=== PATIENT | female | born 1930 | race American Indian/Alaskan Native ===

== ENCOUNTER 2017-03-18 13:10 | Inpatient (IN) | payer MEDICARE ==
--- NOTE | 2017-03-18 14:11 | Emergency Department Report ---
HPI - General Chief Complaint: Weakness Time Seen by Provider: 03/18/17 13:56 - HPI HPI: Room 2 The patient is an 86-year-old female presenting with a chief complaint of nausea and diarrhea and weakness. Family states the patient is suffering from nausea and diarrhea since 03/14/2017. Yesterday the patient's stool turned black. The Patient admits to nausea but denies vomiting. Patient admits to occasional cough but denies chest pain. When asked how she is feeling currently patient replies "real weak." Location: [See above] Duration: [See above] Quality: Weakness Severity: Moderate Modifying factors: [see above] Context: [see above] Mode of transportation: [not driving] ED Past Medical Hx - Past Medical History Hx Hypertension: Yes Hx Arthritis: Yes - Surgical History Past Surgical History?: Yes Hx Cholecystectomy: Yes Additional Surgical History: knee OR 2012 - Family History Family history: no significant - Social History Smoking Status: Never Smoker Substance Use Type: None - Medications Home Medications: Home Medications Medication Instructions Recorded Confirmed Last Taken Type Albuterol Sulfate [Ventolin Hfa] 2 puff IH BID PRN 03/18/17 03/18/17 03/17/17 History Atenolol/Chlorthalidone [Tenoretic 1 tab PO QDAY 03/18/17 03/18/17 03/17/17 History 50-25] Meloxicam [Mobic] 7.5 mg PO QDAY 03/18/17 03/18/17 Unknown History Promethazine [Phenergan TAB] 25 mg PO Q6HR PRN 03/18/17 03/18/17 03/17/17 History ED Review of Systems ROS: Stated complaint: WEAKNESS/GENERAL MALAISE Other details as noted in HPI Constitutional: weakness Eyes: denies: eye pain Respiratory: cough Cardiovascular: denies: chest pain Gastrointestinal: nausea, melena. denies: vomiting Genitourinary: denies: dysuria Musculoskeletal: myalgia Physical Exam - Physical Exam Vital Signs: Vital Signs 03/18/17 13:58 Temperature 100.4 F H Pulse Rate 80 Respiratory 16 Rate Blood Pressure 147/70 O2 Sat by Pulse 93 Oximetry Physical Exam: GENERAL: The patient is well-developed well-nourished female lying on stretcher not appearing to be in acute distress. [] HEENT: Normocephalic. Atraumatic. Extraocular motions are intact. Patient has moist mucous membranes. NECK: Supple. Trachea midline CHEST/LUNGS: Clear to auscultation. There is no respiratory distress noted. HEART/CARDIOVASCULAR: Regular. There is no tachycardia. There is no gallop rub or murmur. ABDOMEN: Abdomen is soft, nontender. Patient has normal bowel sounds. There is no abdominal distention. SKIN: There is no rash. There is no edema. There is no diaphoresis. NEURO: The patient is awake, alert, and oriented. The patient is cooperative. The patient has normal speech MUSCULOSKELETAL: There is no evidence of acute injury. RECTAL: Guaiac positive light yellow stool ED Course Vital Signs 03/18/17 13:58 Temperature 100.4 F H Pulse Rate 80 Respiratory 16 Rate Blood Pressure 147/70 O2 Sat by Pulse 93 Oximetry ED Medical Decision Making - Lab Data Result diagrams: 03/18/17 14:26 03/18/17 14:26 - EKG Data -: EKG Interpreted by Me EKG shows normal: sinus rhythm Rate: normal (79 bpm) - EKG Data When compared to previous EKG there are: previous EKG unavailable Interpretation: other (no ischemic changes seen) - Differential Diagnosis GI bleed, symptomatic anemia, UTI, hypothyroidism Critical care attestation.: If time is entered above; I have spent that time in minutes in the direct care of this critically ill patient, excluding procedure time. ED Disposition Clinical Impression: GI bleed, Fever Disposition: 09 OP ADMIT IP TO THIS HOSP Is pt being admited?: Yes Does the pt Need Aspirin: No Condition: Fair Referrals: EMILY BEE MD [Primary Care Provider] - 3-5 Days Time of Disposition: 16:38 (hospitalist paged (Dr Rojo))
[2017-03-18 14:55] LABS: Basophils % (Auto) 0.7 % (0.0-1.8); Eosinophils % (Auto) 0.1 % (0.0-4.3); Hematocrit 37.2 % (30.3-42.9); Hemoglobin 11.8 gm/dl (10.1-14.3); Lymphocytes # (Auto) 1.3 K/mm3 (1.2-5.4); Lymphocytes % (Auto) 30.9 % (13.4-35.0); Mean Corpuscular HGB Conc 32 % (30-34); Mean Corpuscular Volume 78 fl (79-97); Monocytes # (Auto) 0.3 K/mm3 (0.0-0.8); Monocytes % (Auto) 6.5 % (0.0-7.3); Platelet Count 167 K/mm3 (140-440); Red Blood Count 4.76 M/mm3 (3.65-5.03); Red Cell Distribution Width 15.9 % (13.2-15.2)
[2017-03-18 14:57] LABS: Mean Corpuscular Hemoglobin 25 pg (28-32)
[2017-03-18 15:02] LABS: INR 0.96 (0.87-1.13)
[2017-03-18 15:03] LABS: Partial Thromboplastin Time 32.6 Sec. (24.2-36.6)
[2017-03-18 15:14] LABS: Free T4 (Free Thyroxine) 1.24 ng/dL (0.76-1.46)
[2017-03-18 16:18] LABS: Creatine Kinase MB 3.7 ng/mL (0.0-4.0)
[2017-03-18 16:19] LABS: Alanine Aminotransferase 22 units/L (7-56); Albumin 3.5 g/dL (3.9-5); BUN/Creatinine Ratio 22; Blood Urea Nitrogen 35 mg/dL (7-17); Calcium 8.7 mg/dL (8.4-10.2); Hemolysis Index 2
[2017-03-18] MEDS ORDERED: NACL 0.9% 500 ML 500 ML IV ONE (16:40)
[2017-03-18 18:49] LABS: Bacteria,Urine 4+ /HPF (Negative); Bilirubin,Urine NEG (Negative); Blood,Urine MOD (Negative); Color,Urine Yellow (Yellow); Hyaline Casts,Urine 3 /LPF; Mucus,Urine FEW /HPF; Nitrite,Urine NEG (Negative); Urobilinogen,Urine < 2.0 mg/dL (<2.0)
--- NOTE | 2017-03-18 19:57 | Event Note ---
Date: 03/18/17 See dictated H/p in reports
[2017-03-18] MEDS ORDERED: PHENERGAN PO PRN (19:59)
[2017-03-18] MEDS ORDERED: PROAIR IH PRN (19:59)
[2017-03-18] MEDS ORDERED: NON-FORMULARY (Atenolol/Chlorthalidone [Tenoretic 50-25] 1 TAB) PO SCH (20:00)
[2017-03-18] MEDS ORDERED: ZOFRAN IV PRN (20:02)
[2017-03-18] MEDS ORDERED: MILK OF MAGNESIA PO PRN (20:02)
[2017-03-18] MEDS ORDERED: MORPHINE IV PRN ×2 (20:02)
[2017-03-18] MEDS ORDERED: DULCOLAX PR PRN (20:02)
[2017-03-18] MEDS ORDERED: AMBIEN PO PRN (20:02)
[2017-03-18] MEDS ORDERED: REGLAN IV PRN (20:02)
[2017-03-18] MEDS ORDERED: PROVENTIL IH PRN (20:24)
[2017-03-18 20:37] LABS: Hematocrit 37.5 % (30.3-42.9); Hemoglobin 12.2 gm/dl (10.1-14.3)
[2017-03-18] MEDS: cefTRIAXone 1 GM in NACL 0.9% 20 ML IV SCH (22:01)
[2017-03-18] MEDS: PROTONIX IV SCH (22:01)
[2017-03-19 03:07] LABS: Albumin 2.9 g/dL (3.9-5); Basophils % (Auto) 0.7 % (0.0-1.8); Calcium 8.2 mg/dL (8.4-10.2); Eosinophils % (Auto) 0.1 % (0.0-4.3); Hematocrit 34.2 % (30.3-42.9); Hemoglobin 11.1 gm/dl (10.1-14.3); Lymphocytes # (Auto) 1.4 K/mm3 (1.2-5.4); Lymphocytes % (Auto) 41.6 % (13.4-35.0); Mean Corpuscular HGB Conc 33 % (30-34); Mean Corpuscular Volume 78 fl (79-97); Monocytes # (Auto) 0.3 K/mm3 (0.0-0.8); Monocytes % (Auto) 8.5 % (0.0-7.3); Platelet Count 148 K/mm3 (140-440); Red Blood Count 4.37 M/mm3 (3.65-5.03)
[2017-03-19 03:21] LABS: Mean Corpuscular Hemoglobin 25 pg (28-32)
[2017-03-19] MEDS: NACL 0.9% 1000 ML 1,000 ML IV SCH (05:30)
[2017-03-19] MEDS: TYLENOL PO PRN ×3 (05:58→23:40)
--- NOTE | 2017-03-19 07:57 | History and Physical Report ---
CHIEF COMPLAINT: 1. Weakness. 2. Black stools. 3. Nausea. HISTORY OF PRESENT ILLNESS: An 86-year-old female presents with nausea and dark stools. Also, feeling very weak. The patient had diarrhea since 03/14/2017, but the stools turned black around yesterday. Occasional cough. Feels very weak. PAST MEDICAL HISTORY: Significant for hypertension and arthritis. PAST SURGICAL HISTORY: Significant for cholecystectomy and knee surgery. FAMILY HISTORY: Hypertension. SOCIAL HISTORY: Does not smoke. No alcohol, no recreational drugs. CURRENT MEDICATIONS: Meloxicam, albuterol, and atenolol. REVIEW OF SYSTEMS: Significant for feeling weak and lightheaded and also dark stools. Otherwise, review of systems is essentially negative. PHYSICAL EXAMINATION: GENERAL: Elderly female, cooperative during examination. VITAL SIGNS: Blood pressure 147/70, temperature 100.4, pulse is 80, respiratory rate is 16. HEENT: Unremarkable. Pupils equal and reactive. NECK: Supple, no lymphadenopathy, no thyromegaly. LUNGS: Clear to auscultation and percussion. Good air entry. CARDIOVASCULAR: S1, S2 heard. No gallop, no murmur, no rub. Apical impulse in left fifth intercostal space and midclavicular line. ABDOMEN: Soft and benign. No hepatosplenomegaly. No guarding, no rigidity. Hernial orifices are normal. EXTREMITIES: Good pedal pulses. No pedal edema. CENTRAL NERVOUS SYSTEM: Alert and oriented x 4, nonfocal exam. RECTAL: Occult blood positive. IMAGING STUDIES: EKG normal sinus rhythm, nonspecific ST-T wave changes. LABORATORY DATA: Significant for hemoglobin of 11.8, hematocrit of 37.2, BUN and creatinine of 35 and 1.6. ASSESSMENT AND PLAN: 1. Lower gastrointestinal bleed. The patient to be evaluated for peptic ulcer disease and diverticulosis. GI consult requested. Hemoglobin and hematocrit q.8 hours ordered. IV Protonix ordered. 2. Acute kidney injury. BUN and creatinine 35 and 1.6. IV fluids ordered. 3. Hypertension. Continue atenolol 50/25 daily. 4. Arthritis. The patient on Meloxicam, which is stopped because of the potential cause for peptic ulcer disease. 5. Chronic obstructive pulmonary disease. Continue albuterol inhaler 2 puffs q.i.d. p.r.n. 6. Deep venous thromboses prophylaxis, SCDs only, no Lovenox. JOB# [id number] SHAWN/YAMILA
--- NOTE | 2017-03-19 08:01 | Progress Note ---
Assessment and Plan Assessment and plan: GI bleed - H&H stable - GI consulted UTI - On Rocephin Hypertension - Continue atenolol and amlodipine, discontinue chlorthalidone because of renal insufficiency Asthma - Albuterol when necessary Acute renal insufficiency - I discontinued chlorthalidone DVT prophylaxis Disposition Plan: will decide after GI evaluation. History Interval history: No nursing issues reported overnight, her stool is dark. Patient has nausea. Hospitalist Physical - Physical exam Narrative exam: Not in cardiopulmonary distress. The patient appeared well nourished and normally developed. Vital signs as documented. Head exam is unremarkable. No scleral icterus . Neck is without jugular venous distension, thyromegaly, or carotid bruits. Lungs are clear to auscultation. Cardiac exam reveals regular rate and Rhythm. First and second heart sounds normal. No murmurs, rubs or gallops. Abdominal exam reveals normal bowel sounds, no masses, no organomegaly and no aortic enlargement. Extremities are nonedematous and both femoral and pedal pulses are normal. CLAM DREDGER: Alert and oriented 3. No focal weakness. - Constitutional Vitals: Temp Pulse Resp BP Pulse Ox 100.1 F H 92 H 15 133/71 94 03/19/17 01:03 03/19/17 01:27 03/19/17 01:27 03/19/17 01:03 03/19/17 01:27 Results - Labs CBC & Chem 7: 03/19/17 07:58 03/19/17 02:24 Labs: Laboratory Last Values WBC 3.4 K/mm3 (4.5-11.0) L 03/19/17 02:24 RBC 4.37 M/mm3 (3.65-5.03) 03/19/17 02:24 Hgb 11.1 gm/dl (10.1-14.3) 03/19/17 02:24 Hct 34.2 % (30.3-42.9) 03/19/17 02:24 MCV 78 fl (79-97) L 03/19/17 02:24 MCH 25 pg (28-32) L 03/19/17 02:24 MCHC 33 % (30-34) 03/19/17 02:24 RDW 16.0 % (13.2-15.2) H 03/19/17 02:24 Plt Count 148 K/mm3 (140-440) 03/19/17 02:24 Lymph % (Auto) 41.6 % (13.4-35.0) H 03/19/17 02:24 [place] % (Auto) 8.5 % (0.0-7.3) H 03/19/17 02:24 Eos % (Auto) 0.1 % (0.0-4.3) 03/19/17 02:24 Baso % (Auto) 0.7 % (0.0-1.8) 03/19/17 02:24 Lymph # 1.4 K/mm3 (1.2-5.4) 03/19/17 02:24 [place] # 0.3 K/mm3 (0.0-0.8) 03/19/17 02:24 Eos # 0.0 K/mm3 (0.0-0.4) 03/19/17 02:24 Baso # 0.0 K/mm3 (0.0-0.1) 03/19/17 02:24 Seg Neutrophils % 49.1 % (40.0-70.0) 03/19/17 02:24 Seg Neutrophils # 1.7 K/mm3 (1.8-7.7) L 03/19/17 02:24 PT 13.3 Sec. (12.2-14.9) 03/18/17 14:26 INR 0.96 (0.87-1.13) 03/18/17 14:26 APTT 32.6 Sec. (24.2-36.6) 03/18/17 14:26 Sodium 136 mmol/L (137-145) L 03/19/17 02:24 Potassium 4.5 mmol/L (3.6-5.0) 03/19/17 02:24 Chloride 102.1 mmol/L (98-107) 03/19/17 02:24 Carbon Dioxide 20 mmol/L (22-30) L 03/19/17 02:24 Anion Gap 18 mmol/L 03/19/17 02:24 BUN 34 mg/dL (7-17) H 03/19/17 02:24 Creatinine 1.6 mg/dL (0.7-1.2) H 03/19/17 02:24 Estimated GFR 37 ml/min 03/19/17 02:24 BUN/Creatinine Ratio 21 % 03/19/17 02:24 Glucose 110 mg/dL (65-100) H 03/19/17 02:24 Hemoglobin A1c 5.8 % (4-6) 03/18/17 20:17 Calcium 8.2 mg/dL (8.4-10.2) L 03/19/17 02:24 Total Bilirubin 0.40 mg/dL (0.1-1.2) 03/19/17 02:24 AST 39 units/L (5-40) 03/19/17 02:24 ALT 18 units/L (7-56) 03/19/17 02:24 Alkaline Phosphatase 104 units/L (35-129) 03/19/17 02:24 Total Creatine Kinase 173 units/L (30-135) H 03/18/17 14:26 CK-MB (CK-2) 3.7 ng/mL (0.0-4.0) 03/18/17 14:26 CK-MB (CK-2) Rel Index 2.1 (0-4) 03/18/17 14:26 Troponin T < 0.010 ng/mL (0.00-0.029) 03/18/17 14:26 Total Protein 7.0 g/dL (6.3-8.2) 03/19/17 02:24 Albumin 2.9 g/dL (3.9-5) L 03/19/17 02:24 Albumin/Globulin Ratio 0.7 % 03/19/17 02:24 TSH 2.250 mlU/mL (0.270-4.200) 03/18/17 14:26 Free T4 1.24 ng/dL (0.76-1.46) 03/18/17 14:26 Urine Color Yellow (Yellow) 03/18/17 18:29 Urine Turbidity Slightly-cloudy (Clear) 03/18/17 18:29 Urine pH 6.0 (5.0-7.0) 03/18/17 18:29 Ur Specific [place] 1.013 (1.003-1.030) 03/18/17 18:29 Urine Protein 100 mg/dl mg/dL (Negative) 03/18/17 18:29 Urine Glucose (UA) Neg mg/dL (Negative) 03/18/17 18:29 Urine Ketones Tr mg/dL (Negative) 03/18/17 18:29 Urine Blood Mod (Negative) 03/18/17 18:29 Urine Nitrite Neg (Negative) 03/18/17 18:29 Urine Bilirubin Neg (Negative) 03/18/17 18:29 Urine Urobilinogen < 2.0 mg/dL (<2.0) 03/18/17 18:29 Ur Leukocyte Esterase Tr (Negative) 03/18/17 18:29 Urine WBC (Auto) 9.0 /HPF (0.0-6.0) H 03/18/17 18:29 Urine RBC (Auto) 3.0 /HPF (0.0-6.0) 03/18/17 18:29 U Epithel Cells (Auto) 1.0 /HPF (0-13.0) 03/18/17 18:29 Urine Bacteria (Auto) 4+ /HPF (Negative) 03/18/17 18:29 Hyaline Casts 3 /LPF 03/18/17 18:29 Urine Mucus Few /HPF 03/18/17 18:29 Ur Yeast w Hyphae Rare /HPF 03/18/17 18:29
[2017-03-19 08:12] LABS: Hematocrit 33.4 % (30.3-42.9); Hemoglobin 10.8 gm/dl (10.1-14.3)
[2017-03-19] MEDS: TENORMIN PO SCH ×2 (10:14→10:19)
[2017-03-19] MEDS: THALITONE PO SCH ×2 (10:14→10:19)
[2017-03-19] MEDS: PROTONIX IV SCH ×2 (11:00→23:40)
[2017-03-19] MEDS: cefTRIAXone 1 GM in NACL 0.9% 20 ML IV SCH (11:00)
--- NOTE | 2017-03-19 12:48 | Gastroenterology Consultation ---
History of Present Illness - Reason for Consult Consult date: 03/19/17 Possible GI bleeding Requesting physician: MAGNO VERA - History of Present Illness The patient is an 86 year old female for whom consultation was requested for possible GI bleeding. She was at baseline until 03/14 when she developed acute nausea, vomiting, and diarrhea which she says was black at times. Patient has had low grade fever and chills as well, but does report much improvement overnight. Nausea has nearly resolved and stools have been observed to be yellow throughout this admission so far, but heme positive. Patient takes Meloxicam regularly for arthritis. No prior history of PUD or bleeding. Denies hx weight loss or abdominal pain. Past History Past Medical History: arthritis, hypertension Social history: no significant social history, lives with family. denies: smoking, alcohol abuse Family history: no significant family history Medications and Allergies Allergies Allergy/AdvReac Type Severity Reaction Status Date / Time celecoxib [From Celebrex] Allergy Shortness Verified 06/04/14 11:33 of Breath Penicillins Allergy Hives Verified 06/04/14 11:33 Home Medications Medication Instructions Recorded Confirmed Last Taken Type Albuterol Sulfate [Ventolin Hfa] 2 puff IH BID PRN 03/18/17 03/18/17 03/17/17 History Atenolol/Chlorthalidone [Tenoretic 1 tab PO QDAY 03/18/17 03/18/17 03/17/17 History 50-25] Meloxicam [Mobic] 7.5 mg PO QDAY 03/18/17 03/18/17 Unknown History Promethazine [Phenergan TAB] 25 mg PO Q6HR PRN 03/18/17 03/18/17 03/17/17 History Active Meds: Active Medications Acetaminophen (Tylenol) 650 mg PO Q4H PRN PRN Reason: Pain MILD(1-3)/Fever >100.5/MAY Last Admin: 03/19/17 05:58 Dose: 650 mg Albuterol (Proventil) 2.5 mg IH Q4HRT PRN PRN Reason: Shortness Of Breath Atenolol (Tenormin) 50 mg PO QDAY SUSAN Last Admin: 03/19/17 10:19 Dose: Not Given Bisacodyl (Dulcolax) 10 mg DE QDAY PRN PRN Reason: Constipation unrelieved by MOM Delonthalidone (Thalitone) 25 mg PO QDAY [facility] Last Admin: 03/19/17 10:19 Dose: Not Given Sodium Chloride (Nacl 0.9% 1000 Ml) 1,000 mls @ 100 mls/hr IV DIRECT [facility] Last Admin: 03/19/17 05:30 Dose: 100 mls/hr Ceftriaxone Sodium 1 gm/ (Sodium Chloride) 20 mls @ 20 mls/10 min IV Q24HR [facility] PRN Reason: Protocol Last Admin: 03/19/17 11:00 Dose: 20 mls/10 min Magnesium Hydroxide (Milk Of Magnesia) 30 ml PO Q4H PRN PRN Reason: Constipation Metoclopramide HCl (Reglan) 10 mg IV Q6H PRN PRN Reason: Nausea And Vomiting Morphine Sulfate (Morphine) 2 mg IV Q4H PRN PRN Reason: Pain, Moderate (4-6) Morphine Sulfate (Morphine) 4 mg IV Q4H PRN PRN Reason: Pain , Severe (7-10) Ondansetron HCl (Zofran) 4 mg IV Q8H PRN PRN Reason: N/V unrelieved by Reglan Pantoprazole Sodium (Protonix) 40 mg IV BID [facility] Last Admin: 03/19/17 11:00 Dose: 40 mg Promethazine HCl (Phenergan) 25 mg PO Q6HR PRN PRN Reason: Nausea Zolpidem Tartrate (Ambien) 5 mg PO QHS PRN PRN Reason: Insomnia Review of Systems - Review of Systems Constitutional: no weight loss, no weight gain Eyes: no change in vision Ears, Nose, Throat: no decreased hearing, no difficulty swallowing, no epistaxis Breasts: deferred Cardiovascular: no chest pain, no shortness of breath Respiratory: no cough, no shortness of breath, no wheezing Gastrointestinal: nausea, vomiting, melena, no abdominal pain, no diarrhea, no heartburn Rectal: no pain Female Genitourinary: deferred Musculoskeletal: no gait dysfunction, no joint pain, no muscle pain Integumentary: no deferred, no rash, no pruritis Neurological: weakness, no paralysis Psychiatric: no anxiety, no change in appetite Endocrine: no cold intolerance, no heat intolerance Hematologic/Lymphatic: no easy bruising, no easy bleeding Allergic/Immunologic: no wheezing Exam - Constitutional Vital Signs: Temp Pulse Resp BP Pulse Ox 98.1 F 76 18 152/73 93 03/19/17 08:16 03/19/17 10:19 03/19/17 08:16 03/19/17 10:19 03/19/17 08:16 General appearance: no acute distress, well-nourished, other (cooperative and appearing younger than stated age.) - EENT Eyes: PERRL ENT: hearing intact, clear oral mucosa - Neck Neck: supple, normal ROM, no masses or JVD - Respiratory Respiratory effort: normal Respiratory: bilateral: CTA - Breasts Breasts: deferred - Cardiovascular Rhythm: regular Heart Sounds: Present: S1 & S2. Absent: gallop, rub Extremities: pulses intact, No edema, normal color, Full ROM - Gastrointestinal General gastrointestinal: Present: soft, non-tender, non-distended, normal bowel sounds. Absent: hepatomegaly, splenomegaly, mass Rectal Exam: deferred - Genitourinary Female Genitourinary: deferred - Integumentary Integumentary: Present: clear, warm, dry - Neurologic Neurological: alert and oriented x3 - Labs CBC & Chem 7: 03/19/17 07:58 03/19/17 02:24 Lab Results: Laboratory Results - last 24 hr 03/18/17 03/18/17 03/18/17 14:26 14:26 14:26 WBC 4.1 L RBC 4.76 Hgb 11.8 Hct 37.2 MCV 78 L MCH 25 L MCHC 32 RDW 15.9 H Plt Count 167 Lymph % (Auto) 30.9 [place] % (Auto) 6.5 Eos % (Auto) 0.1 Baso % (Auto) 0.7 Lymph # 1.3 [place] # 0.3 Eos # 0.0 Baso # 0.0 Seg Neutrophils % 61.8 Seg Neutrophils # 2.5 PT 13.3 INR 0.96 APTT 32.6 Sodium 137 Potassium 4.7 Chloride 99.9 Carbon Dioxide 18 L Anion Gap 24 BUN 35 H Creatinine 1.6 H Estimated GFR 37 BUN/Creatinine Ratio 22 Glucose 96 Hemoglobin A1c Calcium 8.7 Total Bilirubin 0.40 AST 47 H ALT 22 Alkaline Phosphatase 121 Total Creatine Kinase 173 H CK-MB (CK-2) 3.7 CK-MB (CK-2) Rel Index 2.1 Troponin T < 0.010 Total Protein 8.1 Albumin 3.5 L Albumin/Globulin Ratio 0.8 TSH Free T4 Urine Color Urine Turbidity Urine pH Ur Specific [place] Urine Protein Urine Glucose (UA) Urine Ketones Urine Blood Urine Nitrite Urine Bilirubin Urine Urobilinogen Ur Leukocyte Esterase Urine WBC (Auto) Urine RBC (Auto) U Epithel Cells (Auto) Urine Bacteria (Auto) Hyaline Casts Urine Mucus Ur Yeast w Hyphae 03/18/17 03/18/17 03/18/17 14:26 18:29 20:17 WBC RBC Hgb Hct MCV MCH MCHC RDW Plt Count Lymph % (Auto) [place] % (Auto) Eos % (Auto) Baso % (Auto) Lymph # [place] # Eos # Baso # Seg Neutrophils % Seg Neutrophils # PT INR APTT Sodium Potassium Chloride Carbon Dioxide Anion Gap BUN Creatinine Estimated GFR BUN/Creatinine Ratio Glucose Hemoglobin A1c 5.8 Calcium Total Bilirubin AST ALT Alkaline Phosphatase Total Creatine Kinase CK-MB (CK-2) CK-MB (CK-2) Rel Index Troponin T Total Protein Albumin Albumin/Globulin Ratio TSH 2.250 Free T4 1.24 Urine Color Yellow Urine Turbidity Slightly-cloudy Urine pH 6.0 Ur Specific [place] 1.013 Urine Protein 100 mg/dl Urine Glucose (UA) Neg Urine Ketones Tr Urine Blood Mod Urine Nitrite Neg Urine Bilirubin Neg Urine Urobilinogen < 2.0 Ur Leukocyte Esterase Tr Urine WBC (Auto) 9.0 H Urine RBC (Auto) 3.0 U Epithel Cells (Auto) 1.0 Urine Bacteria (Auto) 4+ Hyaline Casts 3 Urine Mucus Few Ur Yeast w Hyphae Rare 03/18/17 03/19/17 03/19/17 20:17 02:24 02:24 WBC 3.4 L RBC 4.37 Hgb 12.2 11.1 Hct 37.5 34.2 MCV 78 L MCH 25 L MCHC 33 RDW 16.0 H Plt Count 148 Lymph % (Auto) 41.6 H [place] % (Auto) 8.5 H Eos % (Auto) 0.1 Baso % (Auto) 0.7 Lymph # 1.4 [place] # 0.3 Eos # 0.0 Baso # 0.0 Seg Neutrophils % 49.1 Seg Neutrophils # 1.7 L PT INR APTT Sodium 136 L Potassium 4.5 Chloride 102.1 Carbon Dioxide 20 L Anion Gap 18 BUN 34 H Creatinine 1.6 H Estimated GFR 37 BUN/Creatinine Ratio 21 Glucose 110 H Hemoglobin A1c Calcium 8.2 L Total Bilirubin 0.40 AST 39 ALT 18 Alkaline Phosphatase 104 Total Creatine Kinase CK-MB (CK-2) CK-MB (CK-2) Rel Index Troponin T Total Protein 7.0 Albumin 2.9 L Albumin/Globulin Ratio 0.7 TSH Free T4 Urine Color Urine Turbidity Urine pH Ur Specific [place] Urine Protein Urine Glucose (UA) Urine Ketones Urine Blood Urine Nitrite Urine Bilirubin Urine Urobilinogen Ur Leukocyte Esterase Urine WBC (Auto) Urine RBC (Auto) U Epithel Cells (Auto) Urine Bacteria (Auto) Hyaline Casts Urine Mucus Ur Yeast w Hyphae 03/19/17 07:58 WBC RBC Hgb 10.8 Hct 33.4 MCV MCH MCHC RDW Plt Count Lymph % (Auto) [place] % (Auto) Eos % (Auto) Baso % (Auto) Lymph # [place] # Eos # Baso # Seg Neutrophils % Seg Neutrophils # PT INR APTT Sodium Potassium Chloride Carbon Dioxide Anion Gap BUN Creatinine Estimated GFR BUN/Creatinine Ratio Glucose Hemoglobin A1c Calcium Total Bilirubin AST ALT Alkaline Phosphatase Total Creatine Kinase CK-MB (CK-2) CK-MB (CK-2) Rel Index Troponin T Total Protein Albumin Albumin/Globulin Ratio TSH Free T4 Urine Color Urine Turbidity Urine pH Ur Specific [place] Urine Protein Urine Glucose (UA) Urine Ketones Urine Blood Urine Nitrite Urine Bilirubin Urine Urobilinogen Ur Leukocyte Esterase Urine WBC (Auto) Urine RBC (Auto) U Epithel Cells (Auto) Urine Bacteria (Auto) Hyaline Casts Urine Mucus Ur Yeast w Hyphae Assessment and Plan - Patient Problems (1) Occult GI bleeding Current Visit: Yes Status: Acute Plan to address problem: No acute GI bleeding is evident. Stools are neither melenic or bloody. H&H is relatively stable overnight. She is on Meloxicam which may be the cause of gastritis or ulcers and heme positive stools. She was advised to stop all NSAIDS especially with renal insufficiency. I suspect she has a gastroenteritis that accounts for her symptoms and appears to be improving rapidly. Will continue conservative care with PPI therapy, IVF, PRN anti emetics as you are doing. Advance to clears. Consider for endoscopy if symptoms do not continue the rapidly improving trend. (2) Gastroenteritis Current Visit: Yes Status: Acute (3) Renal insufficiency Current Visit: Yes Status: Acute
[2017-03-19] MEDS: NORVASC PO SCH (18:26)
[2017-03-20] MEDS: NACL 0.9% 1000 ML 1,000 ML IV SCH (06:56)
--- NOTE | 2017-03-20 07:05 | Gastroenterology Progress Note ---
Assessment and Plan - Patient Problems (1) Occult GI bleeding Current Visit: Yes Status: Acute Plan to address problem: No overt bleeding. No need for inpatient GI studies. (2) Gastroenteritis Current Visit: Yes Status: Acute Plan to address problem: Symptoms are resolving rapidly. Tolerated clear liquids. No diarrhea overnight. I will advance diet and f/u PRN. (3) Renal insufficiency Current Visit: Yes Status: Acute Subjective Date of service: 03/20/17 Principal diagnosis: hemoccult positive stools, diarrhea Interval history: The patient reports feeling better overall. Denies abdominal pain. No stools over night. No nausea or vomiting. Objective - Constitutional Vitals: Temp Pulse Resp BP Pulse Ox 99.1 F 75 20 143/62 94 03/20/17 03:29 03/20/17 03:29 03/20/17 03:29 03/20/17 03:29 03/20/17 03:29 General appearance: no acute distress - EENT ENT: hearing intact, clear oral mucosa, dentition normal - Neck Neck: supple, normal ROM - Respiratory Respiratory effort: normal Respiratory: bilateral: CTA - Cardiovascular Rhythm: regular - Gastrointestinal General gastrointestinal: Present: soft, non-tender, non-distended, normal bowel sounds - Neurologic Neurological: alert and oriented x3 - Labs CBC & Chem 7: 03/19/17 07:58 03/19/17 02:24 Labs: Laboratory Results - last 24 hr 03/19/17 03/19/17 07:58 21:56 Hgb 10.8 Hct 33.4 POC Glucose 103
[2017-03-20 07:11] LABS: Basophils % (Auto) 1.1 % (0.0-1.8); Eosinophils % (Auto) 0.5 % (0.0-4.3); Hematocrit 31.8 % (30.3-42.9); Hemoglobin 10.3 gm/dl (10.1-14.3); Lymphocytes # (Auto) 1.5 K/mm3 (1.2-5.4); Mean Corpuscular HGB Conc 32 % (30-34); Mean Corpuscular Volume 78 fl (79-97); Monocytes # (Auto) 0.3 K/mm3 (0.0-0.8); Monocytes % (Auto) 7.7 % (0.0-7.3); Platelet Count 131 K/mm3 (140-440); Red Blood Count 4.08 M/mm3 (3.65-5.03); Red Cell Distribution Width 16.1 % (13.2-15.2)
[2017-03-20 07:15] LABS: Mean Corpuscular Hemoglobin 25 pg (28-32)
[2017-03-20 07:24] LABS: Calcium 7.7 mg/dL (8.4-10.2)
--- NOTE | 2017-03-20 08:33 | Discharge Summary ---
Providers - Providers Date of Admission: 03/18/17 20:02 Date of discharge: 03/20/17 Attending physician: MAGNO VERA MD 03/19/17 07:17 Consult to Physician [CONS] Routine Consulting Provider: SRIDEVI NOLEN Reason For Exam: Dark stool Place consult to:: Notified:: Phone number called:: [phone] Was contact made?: Yes If yes, spoke with:: JAVIER Time called:: 08:00 Comment:: HAYLEY Primary care physician: EMILY BEE Hospitalization Reason for admission: Occult GI bleeding, JANETTE Condition: Stable Pertinent studies: FOBT was positive for blood. Hospital course: The patient is an 86 year old female was admitted for possible GI bleeding. She was at baseline until 03/14 when she developed acute nausea, vomiting, and diarrhea which she says was black at times. Patient has had low grade fever and chills as well, but does report much improvement overnight. Nausea has nearly resolved and stools have been observed to be yellow throughout this admission so far, but heme positive. Patient takes Meloxicam regularly for arthritis. No prior history of PUD or bleeding. Denies hx weight loss or abdominal pain. Patient was treated with IV antibiotics for UTI and fluid for acute renal insufficiency. AGE resolved with symptomatic treatment. GI consulted and recommended no further work up as inpatient. patient advised to have follow up with her PCP for a possible colonoscopy. patients symptoms improved and JANETTE resolved. Discharged with a short course of antibiotics. Management plan was discussed with patient's daughter who was in the room at the time of discharge. Patient was hemodynamically stable at the time of discharge. H/H was stable. Disposition: TO HOME OR SELFCARE Time spent for discharge: 31 minutes - Discharge Diagnoses (1) UTI (urinary tract infection) Status: Acute (2) Gastroenteritis Status: Acute (3) Occult GI bleeding Status: Acute (4) Renal insufficiency Status: Acute Core Measure Documentation - Palliative Care Palliative Care/ Comfort Measures: Not Applicable - Core Measures Any of the following diagnoses?: none Exam - Physical Exam Narrative exam: Not in cardiopulmonary distress. The patient appeared well nourished and normally developed. Vital signs as documented. Head exam is unremarkable. No scleral icterus . Neck is without jugular venous distension, thyromegaly, or carotid bruits. Lungs are clear to auscultation. Cardiac exam reveals regular rate and Rhythm. First and second heart sounds normal. No murmurs, rubs or gallops. Abdominal exam reveals normal bowel sounds, no masses, no organomegaly and no aortic enlargement. Extremities are nonedematous and both femoral and pedal pulses are normal. ATTORNEY [employer]: Alert and oriented 3. No focal weakness. - Constitutional Vitals: Temp Pulse Resp BP Pulse Ox 99.1 F 75 20 143/62 94 03/20/17 03:29 03/20/17 03:29 03/20/17 03:29 03/20/17 03:29 03/20/17 03:29 Plan Activity: no restrictions Weight Bearing Status: Full Weight Bearing Diet: low cholesterol, low salt Follow up with: EMILY BEE MD [Primary Care Provider] - 10 Days Prescriptions: Levofloxacin [Levaquin TAB] 500 mg PO QDAY #5 tablet
[2017-03-20] MEDS: PROTONIX IV SCH (10:50)
[2017-03-20] MEDS: NORVASC PO SCH (10:50)
[2017-03-20] MEDS: TENORMIN PO SCH (10:51)
[2017-03-20] MEDS: cefTRIAXone 1 GM in NACL 0.9% 20 ML IV SCH (10:55)
[2017-03-20] MEDS ORDERED: PNEUMOVAX 23 IM ONE (12:06)
[2017-03-20 14:18] VITALS: BP 138/68
--- NOTE | 2017-03-28 12:56 | Query- Renal Failure ---
Deakirill Lott_Zelda_Marielos Date:____03/28/17 Crawler Crane Operator/CDS:___Abnerbhavana / Lewis Phone#:___[phone] Exercise your independent professional judgment when responding to query. Questions asked do not imply a particular answer is desired or expected. We greatly appreciate your clarification on this issue. Clinical Documentation States: 86 year old female was admitted on 03/18/17 The Discharge summary (Dr. Arceo) states " The patient is an 86 year old female was admitted for possible GI bleeding. She was at baseline until 03/14 when she developed acute nausea, vomiting, and diarrhea which she says was black at times. - Discharge Diagnoses (4) Renal insufficiency " Clinical Findings Show: 03/18/17 03/20/17 Creatinine: 1.6 1.2 BUN/Creatinine Ratio: 22 18 Please clarify if you mean: Acute Renal Failure with or due to: [ ] Tubular Necrosis [ ] Medullary Necrosis [x ] Vasomotor Nephropathy [ ] Shock Kidney [ ] Tubular Nephrosis [ ] Renal Tubular Stasis [ ] Cortical Necrosis [ ] Acute Renal Failure (unspecified) [ ] Lower Tubular Nephrosis [ ] Other: [ ] Not Applicable Present on Admission: [ x] Yes (Y) [ ] Clinically undeterminable (W) [ ] No (N) Please also document response in your Progress Notes and/or Discharge Summary and indicate if the condition was present on admission. MTDD
== END 2017-03-20 15:16 | disposition home or self-care (01) | DRG 377 ==
LOC: ED 13:10 → 3A 20:02 → 2B-ACE 23:03
PROVIDERS: ADMIT Internal Medicine; ATTEND Internal Medicine
PROC: 3E0234Z Introduction of Serum, Toxoid and Vaccine into Muscle, Percutaneous Approach (ICD-10-PCS; principal; 2017-03-20)
DX: K92.2 Gastrointestinal hemorrhage, unspecified (principal); N17.0 Acute kidney failure with tubular necrosis; N39.0 Urinary tract infection, site not specified; Z88.0 Allergy status to penicillin; Z88.8 Allergy status to other drugs, medicaments and biological substances; I10 Essential (primary) hypertension; Z23 Encounter for immunization; Z90.49 Acquired absence of other specified parts of digestive tract; J45.909 Unspecified asthma, uncomplicated; K52.9 Noninfective gastroenteritis and colitis, unspecified
CPT/HCPCS: 36415; 80048; 80053; 81001; 82271; 82550; 82553; 82962; 83036; 84439; 84443; 84484; 85014; 85018; 85025; 85610; 85730; 87040; 87086; 90732; 93005; 93010; 96365; 96375; C9113; J0696; J2405; J7030; J7040

== ENCOUNTER 2018-11-19 11:33 | Emergency (ER) | payer MEDICARE ==
[2018-11-19 11:54] VITALS: BP 163/67
--- NOTE | 2018-11-19 11:54 | Event Note ---
ED Screening Note Date of service: 11/19/18 Time: 11:52 ED Screening Note: 88 y o female presents with lower back pain from trip and fall This initial assessment/diagnostic orders/clinical plan/treatment(s) is/are subject to change based on patients health status, clinical progression and re-assessment by fellow clinical providers in the ED. Further treatment and workup at subsequent clinical providers discretion. Patient/guardian urged not to elope from the ED as their condition may be serious if not clinically assessed and managed. Initial orders include: ct lumba
--- NOTE | 2018-11-19 13:51 | Cat Scan Report ---
CT LUMBAR SPINE WITHOUT CONTRAST INDICATION: Low back pain after injury. TECHNIQUE: Axial CT images of the spine were obtained. Sagittal and coronal reformatted images were produced. Al l CT scans at this location are performed using CT dose reduction for ALARA by means of automated exp osure control. COMPARISON: None available. FINDINGS: ACUTE FRACTURE(S) OR SUBLUXATION: There is an age-indeterminate mild superior endplate compression fr acture of L3 with about 30% vertebral body height loss. There is no retropulsion of fracture fragment s. There is no significant adjacent soft tissue edema or swelling. Remaining vertebral body heights a re maintained within normal limits. SPINAL DEGENERATIVE CHANGES: There is moderate bilateral facet DJD from L3 through S1. There is no ap preciable significant disc herniation, or spinal canal stenosis, or neural foraminal narrowing throug hout the lumbar spine. PARASPINAL SOFT TISSUES: No soft tissue swelling or other acute abnormalities. ADDITIONAL FINDINGS: No significant additional findings. IMPRESSION: 1. Mild age-indeterminate superior endplate compression fracture of L3 with about 30% vertebral body height loss. 2. No additional acute fracture or subluxation in the lumbar spine. Signer Name: Rg Mora MD Signed: 11/19/2018 1:46 PM Workstation Name: [id number]
--- NOTE | 2018-11-19 14:33 | Emergency Department Report ---
ED Back Pain/Injury HPI - General Chief Complaint: Back Pain/Injury Stated Complaint: FELL/BACK INJURY Time Seen by Provider: 11/19/18 11:52 Source: patient Limitations: No Limitations - History of Present Illness Initial Comments: Patient is a 88-year-old female with history of hypertension and arthritis. Patient presented to the ER complaining of lower back pain after she sustained a fall 3 days ago. Patient stated that she slipped at a grocery store initially landed on her back. Patient denied any head injury, neck injury or loss of consciousness. Patient denied any weakness, numbness or tingling sensation. No bowel or bladder incontinence. MD Complaint: back pain -: days(s) (3) Place: street Radiation: none Consistency: intermittent Improves With: immobilization Worsens With: movement Context: fall Associated Symptoms: denies other symptoms - Related Data Home Medications Medication Instructions Recorded Confirmed Last Taken Albuterol Sulfate [Ventolin Hfa] 2 puff IH BID PRN 03/18/17 03/18/17 03/17/17 Atenolol/Chlorthalidone [Tenoretic 1 tab PO QDAY 03/18/17 03/18/17 03/17/17 50-25] Meloxicam [Mobic] 7.5 mg PO QDAY 03/18/17 03/18/17 Unknown Promethazine [Phenergan] 25 mg PO Q6HR PRN 03/18/17 03/18/17 03/17/17 Previous Rx's Medication Instructions Recorded Last Taken Type levoFLOXacin [Levaquin TAB] 500 mg PO QDAY #5 tablet 03/20/17 Unknown Rx Allergies Allergy/AdvReac Type Severity Reaction Status Date / Time celecoxib [From Celebrex] Allergy Shortness Verified 06/04/14 11:33 of Breath Penicillins Allergy Hives Verified 06/04/14 11:33 ED Review of Systems ROS: Stated complaint: FELL/BACK INJURY Other details as noted in HPI Comment: All other systems reviewed and negative Constitutional: denies: chills, fever Respiratory: denies: cough, shortness of breath, SOB with exertion, SOB at rest, wheezing Cardiovascular: denies: chest pain, palpitations, dyspnea on exertion, orthopnea Gastrointestinal: denies: abdominal pain, nausea, vomiting, diarrhea, constipation, hematemesis, melena, hematochezia Musculoskeletal: back pain Neurological: denies: headache, weakness, numbness, paresthesias, confusion, abnormal gait ED Past Medical Hx - Past Medical History Hx Hypertension: Yes Hx Arthritis: Yes (RA) - Surgical History Hx Cholecystectomy: Yes Additional Surgical History: knee OR 2012 - Social History Smoking Status: Never Smoker Substance Use Type: None - Medications Home Medications: Home Medications Medication Instructions Recorded Confirmed Last Taken Type Albuterol Sulfate [Ventolin Hfa] 2 puff IH BID PRN 03/18/17 03/18/17 03/17/17 History Atenolol/Chlorthalidone [Tenoretic 1 tab PO QDAY 03/18/17 03/18/17 03/17/17 History 50-25] Meloxicam [Mobic] 7.5 mg PO QDAY 03/18/17 03/18/17 Unknown History Promethazine [Phenergan] 25 mg PO Q6HR PRN 03/18/17 03/18/17 03/17/17 History levoFLOXacin [Levaquin TAB] 500 mg PO QDAY #5 tablet 03/20/17 Unknown Rx ED Physical Exam - General Limitations: No Limitations General appearance: alert, in no apparent distress - Head Head exam: Present: atraumatic, normocephalic, normal inspection - Eye Eye exam: Present: normal appearance, PERRL - ENT ENT exam: Present: normal exam, normal orophraynx, mucous membranes moist - Neck Neck exam: Present: normal inspection, full ROM. Absent: tenderness, meningismus, lymphadenopathy, thyromegaly - Respiratory Respiratory exam: Present: normal lung sounds bilaterally - Cardiovascular Cardiovascular Exam: Present: regular rate, normal rhythm, normal heart sounds - GI/Abdominal GI/Abdominal exam: Present: soft, normal bowel sounds. Absent: distended, tenderness, guarding, rebound, rigid, organomegaly, mass, bruit, pulsatile mass, hernia - Extremities Exam Extremities exam: Present: normal inspection, full ROM, normal capillary refill. Absent: tenderness, pedal edema, joint swelling, calf tenderness - Back Exam Back exam: Present: normal inspection, full ROM, muscle spasm. Absent: CVA tenderness (R), CVA tenderness (L), paraspinal tenderness, vertebral tenderness - Neurological Exam Neurological exam: Present: alert, oriented X3, CN II-XII intact, normal gait, reflexes normal - Psychiatric Psychiatric exam: Present: normal mood - Skin Skin exam: Present: warm, intact, normal color ED Course Vital Signs 11/19/18 11:50 Temperature 98.6 F Pulse Rate 65 Respiratory 18 Rate Blood Pressure 163/67 O2 Sat by Pulse 97 Oximetry ED Medical Decision Making - Radiology Data Radiology results: report reviewed Referring Physician: TONY SINGH Patient Name: CARRILLO LEWIS Date of : 1930 Sex: Female Report Date: 2018-11-19 Report Status: Finalized Findings [facility] [address] [id number] Cat Scan Report Signed Patient: CARRILLO LEWIS MR#: [id number] : 1930 Acct:[id number] Age/Sex: 88 / F ADM Date: 11/19/18 Loc: ED Attending Dr: Ordering Physician: JANELLE TSE Date of Service: 11/19/18 Procedure(s): CT lumbar spine wo con Accession Number(s): [id number] cc: JANELLE TSE CT LUMBAR SPINE WITHOUT CONTRAST INDICATION: Low back pain after injury. TECHNIQUE: Axial CT images of the spine were obtained. Sagittal and coronal reformatted images were produced. All CT scans at this location are performed using CT dose reduction for ALARA by means of automated exposure control. COMPARISON: None available. FINDINGS: ACUTE FRACTURE(S) OR SUBLUXATION: There is an age-indeterminate mild superior endplate compression fracture of L3 with about 30% vertebral body height loss. There is no retropulsion of fracture fragments. There is no significant adjacent soft tissue edema or swelling. Remaining vertebral body heights are maintained within normal limits. SPINAL DEGENERATIVE CHANGES: There is moderate bilateral facet DJD from L3 through S1. There is no appreciable significant disc herniation, or spinal canal stenosis, or neural foraminal narrowing throughout the lumbar spine. PARASPINAL SOFT TISSUES: No soft tissue swelling or other acute abnormalities. ADDITIONAL FINDINGS: No significant additional findings. IMPRESSION: 1. Mild age-indeterminate superior endplate compression fracture of L3 with about 30% vertebral body height loss. 2. No additional acute fracture or subluxation in the lumbar spine. Signer Name: Rg Mora MD Signed: 11/19/2018 1:46 PM Workstation Name: TARA Transcribed By: JADE Dictated By: Rg Mora MD Electronically Authenticated By: Rg Mora MD Signed Date/Time: 11/19/181345 DD/ 44 TD/TT: - Medical Decision Making Patient is a 88-year-old female with history of hypertension and arthritis. Patient presented to the ER complaining of lower back pain after she sustained a fall 3 days ago. Patient stated that she slipped at a grocery store initially landed on her back. Patient denied any head injury, neck injury or loss of consciousness. Patient denied any weakness, numbness or tingling sensation. No bowel or bladder incontinence. CT lumbar spine is negative for acute findings showed L3 compression fracture with 30% loss of vertebral body, indeterminant age. Patient does not have any tenderness over that area clinically. She received Toradol 30 mg IM and advised to follow-up with her primary care physician in the next 2-3 days and to return to the ER if symptoms are not improved. Critical care attestation.: If time is entered above; I have spent that time in minutes in the direct care of this critically ill patient, excluding procedure time. ED Disposition Clinical Impression: Fall, Lower back injury Disposition: DC-01 TO HOME OR SELFCARE Is pt being admited?: No Condition: Stable Instructions: Low Back Strain (ED), Fall Prevention for Older Adults (ED) Referrals: PRIMARY CARE, [Referring] - 3-5 Days
== END 2018-11-19 14:51 | disposition home or self-care (01) ==
LOC: ED 11:33
DX: S39.92XA Unspecified injury of lower back, initial encounter (principal); M48.56XA Collapsed vertebra, not elsewhere classified, lumbar region, initial encounter for fracture; I10 Essential (primary) hypertension; M19.90 Unspecified osteoarthritis, unspecified site; Z79.899 Other long term (current) drug therapy; Z90.49 Acquired absence of other specified parts of digestive tract; Z88.0 Allergy status to penicillin; Z88.8 Allergy status to other drugs, medicaments and biological substances; W01.0XXA Fall on same level from slipping, tripping and stumbling without subsequent striking against object, initial encounter; Y93.89 Activity, other specified; Y92.89 Other specified places as the place of occurrence of the external cause; Y99.8 Other external cause status
CPT/HCPCS: 72131